=== PATIENT | female | born 1980 | race Caucasian/White ===

== ENCOUNTER 2025-01-28 07:05 | Outpatient (CLI) | payer BC, SELFPAY ==
--- NOTE | 2025-01-28 07:15 | CRLHL7_ITS ---
For Patients: As a result of the Century Cures Act, medical imaging exams and procedure reports are released immediately into your electronic medical record. You may view this report before your referring provider. If you have questions, please contact your health care provider. INDICATION: Right upper quadrant pain COMPARISON: none TECHNIQUE: Real time todd scale imaging and color Doppler analysis was performed of the right upper quadrant. FINDINGS: The patient`s liver is of normal size and has mildly increased echogenicity. There is a normal appearance of the hepatic IVC and proximal abdominal aorta. There is no evidence of ascites. The gallbladder is of normal size and there is a dependent hyperechoic structure within the gallbladder lumen which measures 1.8 x 1.0 x 1.7 cm. The gallbladder wall measures 1 mm in thickness. The common bile duct is of normal size and measures 4 mm in diameter at the level of the silvano hepatis. The pancreas appears normal. There is no evidence of a stone or hydronephrosis within the right kidney. The right kidney measures 10.8 cm in length. IMPRESSION: Cholelithiasis. Mild hepatic steatosis. Dictated by Hammad Haines MD @ 01/28/2025 11:39:08 AM (Electronically Signed)
== END 2025-01-28 07:06 | disposition home or self-care (01) ==
LOC: US 07:09
PROVIDERS: PCP Family Medicine; Visit Provider Family Medicine
DX: R10.11 Right upper quadrant pain (principal); K80.20 Calculus of gallbladder without cholecystitis without obstruction; K76.0 Fatty (change of) liver, not elsewhere classified; K90.9 Intestinal malabsorption, unspecified
CPT/HCPCS: 76705

== ENCOUNTER 2025-02-05 11:32 | Outpatient (CLI) | payer BC, SELFPAY | END 2025-02-05 11:33 | disposition home or self-care (01) | LOC: NFLDREF 11:33 | PROVIDERS: PCP Family Medicine; Visit Provider Surgery | DX: R79.89 Other specified abnormal findings of blood chemistry (principal) | CPT/HCPCS: 80076 ==

== ENCOUNTER 2025-02-07 06:45 | Day surgery (SDC) | payer BC, SELFPAY ==
[2025-02-07] VITALS (14 sets, daily range): BP systolic 98–113; BP diastolic 59–70; PULSE 46–65; RESP 1–16; TEMP 36.2–36.8; O2SAT 95–100; BMI 34.2
[2025-02-07 07:10] LABS: Ur HCG Qualitative* Negative (Negative)
[2025-02-07] MEDS: SODIUM CHLORIDE 0.9 % (FLUSH) 10 ML SYRINGE IVF (07:41)
[2025-02-07] MEDS: LACTATED RINGERS 1000 ML 1,000 ML 100 ML IV ×2 (07:41→10:52)
--- NOTE | 2025-02-07 07:52 | W.PM.H&PU ---
History & Physical Update History & Physical Update H&P Reviewed and patient assessed: The following changes are noted below H&P Updates: Suyapa's labs returned with a mildly elevated ALT. I was also able to see that she did have a very mildly elevated total bilirubin though indirect fraction was not related. This was at an outside facility. I recommended that we attempt intraoperative cholangiograms today to rule out choledocholithiasis. She is agreeable to proceed.
--- NOTE | 2025-02-07 07:56 | P.GSOP_ITS ---
Operative Note Date of procedure: 02/07/25 Pre-op diagnosis: 1. Biliary colic 2. Elevated LFTs Post-op diagnosis: Same Type of Procedure: 1. Laparoscopic cholecystectomy 2. Intraoperative cholangiogram Indications: The patient is a 44-year-old female who presented to clinic with 2 episodes of upper abdominal pain. In conjunction with this she was found to have mildly elevated total bilirubin, alkaline phosphatase and transaminases. Her symptoms resolved and her labs improved though she still had a very mildly elevated ALT the week of surgery. After discussion, I recommended cholecystectomy with intraoperative cholangiogram. She agreed to proceed after discussion of risks and benefits. Procedure Description: After discussing the risks and benefits of the procedure, the patient signed informed consent.? The operative site was marked and the patient was brought to the operating room and placed on the operating table in supine position.? Care was taken to pad the patient's pressure points.?? The patient was then intubated by anesthesia.?? The operative site was then prepped and draped in the usual sterile fashion.? A time-out was then performed. Entrance to the abdomen was gained via a 5 mm Visiport in the left upper quadrant. The abdomen was insufflated and briefly surveyed for signs of injury. There was none. The patient had a small umbilical hernia noted. This was containing preperitoneal fat. The 10 mm umbilical port was placed through the hernia defect. Additionally, 2 working ports were placed along the right costal margin. The patient was then placed in reverse Trendelenburg position with the right side up. The gallbladder fundus was grasped and retracted cephalad. The infundibulum was grasped. A combination of hook cautery and blunt dissection was used to carefully dissect out the cystic duct and artery until they could clearly be seen entering the gallbladder without any intervening structures. The cystic artery was clipped with 2 clips proximal 1 clip distal. This was then transected with scissors. The cystic duct was then further cleared off slightly. Another small vessel on the duct was clipped for hemostasis. Once this was done, clip was placed across the gallbladder neck and a ductotomy was created. There was bile that flowed back from the duct. The duct was dilated but felt soft. There was a small amount of sludge that did emerge retro grade from the duct. I then brought a cholangiocatheter into the field and placed th is in the cystic duct stump. Then clamped in place and a saline leak test was then performed. The patient was laid flat and fluoroscopy was brought into the field. Contrast was then injected and there was brisk filling of the distal common bile duct with filling of the duodenum. There was no filling defects. Additional contrast injected showed filling of the common hepatic and right and left hepatic ducts. The cholangiocatheter was then removed and the patient was placed back into reverse Trendelenburg position with right side up. The cystic duct stump was then clipped with 2 clips and transected. The gallbladder was then taken off of the liver using cautery. This was then removed from the abdomen using an Endo-Catch bag. The gallbladder bed was surveyed for hemostasis. Small bleeding area was cauterized. There was a small amount of bleeding coming from the falciform ligament. This was also cauterized. I did place a piece of Surgicel in the gallbladder bed though there was no ongoing bleeding at the conclusion of the case. The ports were then removed and the abdomen was desufflated. The umbilical hernia defect through which the 10 port was placed was closed with 0 Vicryl suture. The skin was closed with absorbable subcuticular suture. Sterile dressings were applied. Instrument sponge and needle counts were correct at the end of the case. The patient was then woken and transferred to the PACU in stable condition. ? The patient tolerated the procedure well. Findings: No filling defects seen on cholangiogram Surgeon: Luisa Arevalo MD Estimated blood loss (mL): 10 Specimen: Gallbladder Condition: stable Disposition: PACU
--- NOTE | 2025-02-07 08:00 | CRLHL7_ITS ---
For Patients: As a result of the Century Cures Act, medical imaging exams and procedure reports are released immediately into your electronic medical record. You may view this report before your referring provider. If you have questions, please contact your health care provider. INDICATION : Laparoscopic cholecystectomy. TECHNIQUE : Intraoperative cholangiogram. Contrast injected via gallbladder neck and cystic duct. FINDINGS : Fluoroscopy time was 63 seconds. One image was obtained. IMPRESSION : Normal caliber intra and extrahepatic ducts. No filling defects. Contrast seen within the duodenum. Normal intraoperative cholangiogram. Dictated by Hammad Haines MD @ 02/07/2025 9:03:38 AM (Electronically Signed)
[2025-02-07] MEDS: 0.9% SODIUM CHL 50 ML VIAL INJECTION (09:00)
[2025-02-07] MEDS: BUPIVACAINE 0.25% 30 ML INJECTION (09:15)
--- NOTE | 2025-02-07 09:37 | P.ANES_ITS ---
Anesthesia Charges Start Date/Time Anesthesia Start Date: 02/07/25 Anesthesia Start Time: 08:00 Stop Date/Time Anesthesia Stop Date: 02/07/25 Anesthesia Stop Time: 09:30 Coding CPT Codes CPT Codes: ANESTH SURG UPPER ABDOMEN - 88221 ([id number]) P2 - PATIENT W/MILD SYST DISEASE, QK - WAITER WAITRESS 2-4 CNCRNT ANES PROC, QX - RANGE CONSERVATIONIST SVC W/ MD MED DIRECTION
--- NOTE | 2025-02-07 09:37 | W.ANESCHARGE ---
Anesthesia Charges Start Date/Time Anesthesia Start Date: 02/07/25 Anesthesia Start Time: 08:00 Stop Date/Time Anesthesia Stop Date: 02/07/25 Anesthesia Stop Time: 09:30 Coding CPT Codes CPT Codes: ANESTH SURG UPPER ABDOMEN - 42779 ([id number]) P2 - PATIENT W/MILD SYST DISEASE, QK - CHEMISTRY ASSOCIATE 2-4 CNCRNT ANES PROC, QX - NETBACKUP ADMINISTRATOR SVC W/ MD MED DIRECTION
[2025-02-07] MEDS: HYDROCODONE-ACETAMIN 5-325 MG 1 TAB PO (10:28)
--- NOTE | 2025-02-07 11:15 | P.ANES_ITS ---
Anesthesia Charges Start Date/Time Anesthesia Start Date: 02/07/25 Anesthesia Start Time: 08:00 Stop Date/Time Anesthesia Stop Date: 02/07/25 Anesthesia Stop Time: 09:30 Coding CPT Codes CPT Codes: ANESTH SURG UPPER ABDOMEN - 51363 ([id number]) QK - RACE RELATIONS ADVISER 2-4 CNCRNT ANES PROC, QX - CUSTOMER SERVICE ASSISTANT SVC W/ MD MED DIRECTION, P2 - PATIENT W/MILD SYST DISEASE
--- NOTE | 2025-02-07 11:15 | W.ANESCHARGE ---
Anesthesia Charges Start Date/Time Anesthesia Start Date: 02/07/25 Anesthesia Start Time: 08:00 Stop Date/Time Anesthesia Stop Date: 02/07/25 Anesthesia Stop Time: 09:30 Coding CPT Codes CPT Codes: ANESTH SURG UPPER ABDOMEN - 39316 ([id number]) QK - CANDLE WICKER 2-4 CNCRNT ANES PROC, QX - MALTSTER SVC W/ MD MED DIRECTION, P2 - PATIENT W/MILD SYST DISEASE
== END 2025-02-07 11:49 | disposition home or self-care (01) ==
PROVIDERS: Anesthesiology; PCP Family Medicine; Visit Provider Surgery
PROC: 0FT44ZZ Resection of Gallbladder, Percutaneous Endoscopic Approach (ICD-10-PCS; CPT 47563; principal; 2025-02-07 08:00)
DX: K80.20 Calculus of gallbladder without cholecystitis without obstruction (principal); K42.9 Umbilical hernia without obstruction or gangrene; R74.01 Elevation of levels of liver transaminase levels
CPT/HCPCS: 47563; 00790; 74300; 76000; 81025; 88304; A9270; J0330; J0665; J0690; J1100; J1630; J1885; J2250; J2405; J2704; J2710; J3010; J7120; Q9967

== ENCOUNTER 2025-03-05 14:12 | Outpatient (CLI) | payer BC, SELFPAY ==
[2025-03-07 23:28] LABS: HPV Source Cervix
[2025-03-10 20:08] LABS: Pap Test Digital Imaging Done
== END 2025-03-05 14:13 | disposition home or self-care (01) ==
PROVIDERS: PCP Family Medicine; Visit Provider Physician Assistant
DX: Z12.4 Encounter for screening for malignant neoplasm of cervix (principal); N92.0 Excessive and frequent menstruation with regular cycle
CPT/HCPCS: 84443; 87624; 87625; 88141; 88142; 88175

== ENCOUNTER 2025-03-07 16:04 | Outpatient (CLI) | payer BC, SELFPAY ==
--- NOTE | 2025-03-07 16:00 | CRLHL7_ITS ---
For Patients: As a result of the Century Cures Act, medical imaging exams and procedure reports are released immediately into your electronic medical record. You may view this report before your referring provider. If you have questions, please contact your health care provider. INDICATION: AUB, menorrhagia COMPARISON: None. TECHNIQUE: 2D todd-scale and color Doppler images were acquired of the pelvis using a transabdominal and transvaginal approach. Transvaginal imaging performed to better visualize the endometrial stripe and ovaries. FINDINGS: Right posterior uterine fibroid measures 1.7 x 1.2 x 1.7 cm. Uterus measures 13.8 cm in length by 0.5 cm in AP diameter by 7.1 cm in transverse dimension. The myometrium has a normal uniform echotexture. The endometrial lining measures 17.7 mm in composite thickness. Incidental hyperechoic focus within the endometrium which measures 4.6 millimeters. Cervical nabothian cysts are noted. Endocervical fluid is present. Postprocedural changes are present. The right ovary measures 4.3 x 2.0 x 3.3 cm in size and the left ovary measures 2.9 x 1.8 x 2.5 cm. The ovaries demonstrate normal arterial and venous blood flow on color Doppler analysis. There are no suspicious fluid collections within the cul-de-sac. Simple right ovarian cyst measures 2.3 x 1.9 x 2.5 cm. Simple left paraovarian cyst measures 1.6 x 1.1 x 1.9 cm. IMPRESSION: Status post endocervical polyp resection. Endometrial thickness 17.7 millimeters. Uterine fibroid measures 1.7 cm. Simple right ovarian cyst and simple left paraovarian cyst. Dictated by Hammad Haines MD @ 03/08/2025 1:50:05 PM (Electronically Signed)
== END 2025-03-07 16:05 | disposition home or self-care (01) ==
LOC: US 16:04
PROVIDERS: PCP Family Medicine; Visit Provider Physician Assistant
DX: N93.8 Other specified abnormal uterine and vaginal bleeding (principal); N92.0 Excessive and frequent menstruation with regular cycle; R93.89 Abnormal findings on diagnostic imaging of other specified body structures; D25.9 Leiomyoma of uterus, unspecified; N83.291 Other ovarian cyst, right side
CPT/HCPCS: 76830; 76856